=== PATIENT | female | born 1990 | race Caucasian/White ===

== ENCOUNTER 2019-04-09 15:14 | Day surgery (SDC) | payer OTHER, SELFPAY ==
[2019-04-09] MEDS ORDERED: hydrALAZINE 20 MG/ML VIAL SLOW IVP PRN (16:12)
--- NOTE | 2019-04-09 16:17 | PDOC.LDHP ---
Labor and Delivery H&P HPI: Patient of Dr Ochoa Triage 28 yo G1at 31.2 weeks here for decreased FM this weekend, mainly this PM. Called Gabriela who advised she come in, now movement better. No CTX, no LKOF, no VB. No issues Review of Systems: negative after complete list. Grav: 1 Current complications: none Abnormal US findings: No Past Medical History: None Current medications: pre- vitamins Previous surgical history: none Social history: none - Physical Exam Vital signs reviewed and normal: yes (131/68 96 Afebrile) General: NAD Heart: RRR Lungs: CTAB Abdomen: gravid Extremeties: no edema FHT: category 1 [place] contractions every: none - Assessment G1 at 33 weeks with decreased FM, NST reactive - Plan Plan: observation in L&D (NST ok...as double reassurrance, BPP ordered)
--- NOTE | 2019-04-09 16:32 | PDOC.EVN ---
Event Note - Event Note Event Note: I have seen and evaluated the patient at bedside...reactive NST reviewed to her.
[2019-04-09 16:56] VITALS: TEMP 98.8; BMI 34.7
--- NOTE | 2019-04-09 17:49 | PDOC.EVN ---
Event Note - Event Note Event Note: Baby moving now...NST remains reactive. BPP has been delayed due to [email or web address] tech called for urgent cases. I will cancel BPP as NST screen is reactive.
== END 2019-04-09 17:40 | disposition home or self-care (01) ==
LOC: L&D/OP 15:14
PROVIDERS: ATTEND Obstetrics & Gynecology
DX: O36.8130 Decreased fetal movements, third trimester, not applicable or unspecified (principal); Z3A.31 31 weeks gestation of pregnancy
CPT/HCPCS: 99282

== ENCOUNTER 2019-06-04 10:43 | Inpatient (IN) | payer OTHER, SELFPAY ==
[2019-06-04] MEDS ORDERED: NS w/ Oxytocin 10 units 500 ML IV SCH (20:10)
[2019-06-04] MEDS ORDERED: Lidocaine 1% (PF) 30 ML VIAL SC PRN (20:10)
[2019-06-04] MEDS ORDERED: Zolpidem Tartrate 5 MG TAB PO PRN (20:10)
[2019-06-04] MEDS ORDERED: Ondansetron PF 4 MG/2 ML Vial IVP PRN (20:10)
[2019-06-04] MEDS ORDERED: Ibuprofen 800 MG TAB PO PRN (20:10)
[2019-06-04] MEDS ORDERED: Diphenoxylate HCl/Atropine Tablet PO PRN ×2 (20:10)
[2019-06-04] MEDS ORDERED: Acetaminophen 500 MG TAB PO PRN (20:10)
[2019-06-04] MEDS ORDERED: hydrALAZINE 20 MG/ML VIAL SLOW IVP PRN (20:10)
[2019-06-04] MEDS ORDERED: Misoprostol 200 MCG TAB PR PRN (20:10)
[2019-06-04] MEDS ORDERED: NS / Oxytocin 40 units/1000ml 1,000 ML IV PRN (20:10)
[2019-06-04] MEDS ORDERED: Docusate 100 MG CAP PO PRN (20:10)
[2019-06-04] MEDS ORDERED: Promethazine HCl 25 MG/ML VIAL IM PRN (20:10)
[2019-06-04] MEDS ORDERED: HYDROcodone/Acetaminophen 5/325 mg Tablet PO PRN ×2 (20:10)
[2019-06-04] MEDS ORDERED: Penicillin G Potassium 5 MILL.UNITS in Sodium Chloride 0.9% 100 ML IVPB SCH (20:15)
[2019-06-04] MEDS: Lactated Ringer's 1,000 ML IV SCH ×2 (20:30→20:35)
[2019-06-04 20:43] LABS: Hemoglobin 10.8 g/dL (12.0-16.0); Mean Corpuscular HGB CONC 34.7 g/dL (32.0-36.0); Mean Corpuscular Hemoglobin 30.5 pg (27.0-31.0); Mean Corpuscular Volume 87.9 fL (78.0-98.0); Mean Platelet Volume 8.5 fL (7.4-10.4); Platelet Count 232 thou/uL (130-400); Red Blood Cell (RBC) Count 3.54 mill/uL (4.20-5.40); White Blood Cell (WBC) Count 14.2 thou/uL (4.8-10.8)
[2019-06-04 21:10] VITALS: BMI 36.0
[2019-06-04] MEDS: Misoprostol 100 MCG TAB VAG SCH (21:18)
[2019-06-04 21:52] LABS: Syphilis Antibody Nonreactive (Nonreactive)
[2019-06-05] MEDS: Lactated Ringer's 1,000 ML IV SCH ×2 (00:30→09:08)
[2019-06-05] MEDS: Misoprostol 100 MCG TAB VAG SCH ×2 (01:38→06:50)
[2019-06-05] MEDS: Penicillin G 2.5 MILL.units 2.5 MILL.UNITS in Premix Bag 1 BAG IVPB SCH ×6 (01:41→22:58)
[2019-06-05 01:51] LABS: HBSAg Index 0.15 S/CO (0-0.99); Hep B Surf Ag Non-Reactive S/CO (NonReactive)
[2019-06-05] MEDS: NS w/ Oxytocin 10 units 500 ML IV SCH (06:49)
[2019-06-05] MEDS: Butorphanol Tartrate 1 MG/ML VIAL SLOW IVP PRN ×2 (09:54→12:43)
[2019-06-05] MEDS ORDERED: Fentanyl 4 mcg/Bup 0.1% Cadd 100 ML ONE (13:54)
[2019-06-05] MEDS ORDERED: Lactated Ringer's 500 ML IV PRN (14:30)
[2019-06-05] MEDS ORDERED: Promethazine HCl 25 MG/ML VIAL IM PRN (14:30)
[2019-06-05] MEDS ORDERED: Communication Order-Pharmacy FS SCH (14:30)
[2019-06-05] MEDS ORDERED: ePHEDrine/0.9% NaCl/PF SYRINGE 50 mg/10 ml SLOW IVP PRN (14:30)
[2019-06-05] MEDS ORDERED: Ondansetron PF 4 MG/2 ML Vial IVP PRN (14:30)
[2019-06-05] MEDS ORDERED: Acetaminophen 325 MG TAB PO PRN (14:30)
[2019-06-05] MEDS ORDERED: diphenhydrAMINE 50 MG/ML VIAL IVP PRN (14:30)
[2019-06-05] MEDS ORDERED: Naloxone HCl 0.4 mg/ml Vial IVP PRN ×2 (14:30)
[2019-06-05] MEDS: Fentanyl 4 mcg/Bupivacaine 0.1% Cassette 100 ML EPIDURAL SCH (22:59)
[2019-06-06] MEDS: Penicillin G 2.5 MILL.units 2.5 MILL.UNITS in Premix Bag 1 BAG IVPB SCH ×2 (02:43→13:22)
[2019-06-06] MEDS: Fentanyl 4 mcg/Bupivacaine 0.1% Cassette 100 ML EPIDURAL SCH (05:09)
[2019-06-06] MEDS: Lactated Ringer's 1,000 ML IV SCH ×3 (05:09→14:52)
[2019-06-06] MEDS ORDERED: Ampicillin 2 GM in Sodium Chloride 0.9% 100 ML IVPB SCH (05:30)
[2019-06-06] MEDS ORDERED: Azithromycin 500 MG VIAL ONE (05:42)
[2019-06-06] MEDS ORDERED: Bicitra 30 ML UDCUP ONE (05:42)
[2019-06-06] MEDS ORDERED: Phytonadione 10 MG/ML AMP SLOW IVP SCH (05:45)
[2019-06-06] MEDS ORDERED: Dexamethasone 4 mg/ml Vial ONE (06:13)
[2019-06-06] MEDS ORDERED: MORPHINE 5 MG/10 ML PF VIAL ONE (06:13)
[2019-06-06] MEDS ORDERED: Ondansetron PF 4 MG/2 ML Vial ONE (06:13)
[2019-06-06] MEDS ORDERED: ePHEDrine/0.9% NaCl/PF SYRINGE 50 mg/10 ml ONE (06:13)
[2019-06-06] MEDS ORDERED: Oxytocin 10 UNITS/ML VIAL ONE (06:13)
[2019-06-06] MEDS ORDERED: Promethazine HCl 25 MG SUPP PR PRN (06:30)
[2019-06-06] MEDS ORDERED: Naloxone HCl 0.4 mg/ml Vial IVP PRN ×2 (06:30)
[2019-06-06] MEDS ORDERED: Communication Order-Pharmacy FS SCH (06:30)
[2019-06-06] MEDS ORDERED: HYDROmorphone 2 MG/ML VIAL SLOW IVP PRN (06:30)
[2019-06-06] MEDS ORDERED: Ketorolac Tromethamine 30 MG/ML VIAL IVP SCH (06:30)
[2019-06-06] MEDS ORDERED: Ondansetron HCl/PF 4 MG/2 ML Vial IVP PRN (06:30)
[2019-06-06] MEDS ORDERED: Promethazine HCl 25 MG/ML VIAL IM PRN (06:30)
[2019-06-06] MEDS ORDERED: diphenhydrAMINE 50 MG/ML VIAL IVP PRN (06:30)
[2019-06-06] MEDS ORDERED: Ondansetron PF 4 MG/2 ML Vial IVP PRN ×2 (06:30→07:45)
[2019-06-06] MEDS ORDERED: Naloxone HCl 0.4 mg/ml Vial IV PRN (06:30)
[2019-06-06] MEDS ORDERED: Ketorolac Tromethamine 30 MG/ML VIAL IVP PRN (06:30)
[2019-06-06] MEDS ORDERED: L&D-Morphine 4 MG/ML VIAL SLOW IVP PRN (06:30)
[2019-06-06] MEDS ORDERED: Meperidine HCl/PF 25 MG/ML VIAL SLOW IVP PRN (06:30)
[2019-06-06] MEDS ORDERED: Ketorolac Tromethamine 30 MG/ML VIAL ONE (06:52)
[2019-06-06] MEDS ORDERED: Zolpidem Tartrate 5 MG TAB PO PRN (07:45)
[2019-06-06] MEDS ORDERED: Simethicone Chewable 80 MG TAB PO PRN (07:45)
[2019-06-06] MEDS ORDERED: Lanolin Ointment 7 GM TUBE TOP PRN (07:45)
[2019-06-06] MEDS ORDERED: Acetaminophen 325 MG TAB PO PRN (07:45)
[2019-06-06] MEDS ORDERED: Adacel (T-DAP) 0.5 ML SYRINGE IM ONE (07:45)
[2019-06-06] MEDS ORDERED: diphenhydrAMINE 25 MG CAP PO PRN (07:45)
[2019-06-06] MEDS ORDERED: hydrALAZINE 20 MG/ML VIAL SLOW IVP PRN (07:45)
[2019-06-06] MEDS ORDERED: NS / Oxytocin 40 units/1000ml 1,000 ML IV SCH (07:45)
[2019-06-06] MEDS ORDERED: Meperidine HCl/PF 25 MG/ML VIAL IM PRN (07:45)
[2019-06-06] MEDS ORDERED: Bisacodyl 10 MG SUPP PR PRN (07:45)
[2019-06-06] MEDS ORDERED: Meperidine HCl/PF 25 MG/ML VIAL ONE (09:30)
--- NOTE | 2019-06-06 12:16 | OP ---
DATE OF PROCEDURE: 06/06/2019 RESIDENT SURGEON: Jennifer Kumar. PREOPERATIVE DIAGNOSES: 1. Term intrauterine at 39 and 3/7th weeks. 2. Failed induction. 3. Failure to progress. 4. Arrest of descent and dilatation. POSTOPERATIVE DIAGNOSES: 1. Term intrauterine at 39 and 3/7th weeks. 2. Failed induction. 3. Failure to progress. 4. Arrest of descent and dilatation. 5. Cephalopelvic disproportion. PROCEDURES PERFORMED: 1. Primary low-transverse section (LTCS). 2. Myomectomy. ANESTHESIA: Epidural catheterization. FINDINGS: 1. Transverse arrest of descent at -1 station. 2. Vigorous female , 6 pounds 4 ounces. Apgars 8 and 9. 3. Non-reassuring heart rate tracing (category II strip). 4. A 3-cm uterine fibroid at fundus of the uterus on the anterior surface. 5. Normal fallopian tubes and ovaries. 6. Cephalopelvic disproportion - narrow outlet, deep subpubic arch, prominent sacrum, android pelvis. COMPLICATIONS: None. SPECIMENS REMOVED: 1. Cord blood. 2. Uterine leiomyoma. ESTIMATED BLOOD LOSS: Less than 500 mL (QBL equal 490 mL). DESCRIPTION OF PROCEDURE: After thorough consent and counseling, Mrs. Huizar was taken the operating room, and an adequate level of anesthesia was obtained by existing epidural catheterization. The patient was prepped and draped in usual sterile fashion for abdominal surgery. A Mckenzie had previously been placed in the bladder, which was noted to be draining clear urine. A team time-out was performed per protocol. Attention was then turned to performing the surgical procedure. A Pfannenstiel incision was made and carried sharply to the fascia, which was also sharply incised. The midline was identified and the rectus muscles were retracted laterally. The abdominal peritoneal cavity was entered with usual safeguards carried out. A retractor was placed and a bladder flap was created on the vesicouterine peritoneum. A bladder blade was then placed. A low-transverse incision was made on the well-developed lower uterine segment. Upon entering the amniotic sac, a small amount of clear amniotic fluid was visualized. The was noted to be vertex presentation, still high in the pelvis. Head was delivered and baby was bulb suctioned on the abdomen. Shoulders and body were then delivered in an atraumatic fashion. The cord was doubly clamped and cut and the infant was handed to the pediatric team in attendance for the delivery. The was a vigorous viable female weighing 6 pounds 4 ounces with Apgars of 8 and 9 obtained at one and five minutes respectively. Cord blood was obtained. The placenta was manually removed from the uterus. The uterus was exteriorized and good tone was noted. The uterine cavity was then cleared of any remaining clot and fluid. The low-transverse incision was closed with a running locking ligature of #1 chromic. Multiple [id number] ligatures of #1 chromic were placed to facilitate strength and hemostasis. The vesicouterine peritoneum was then reapproximated to the lower segment with a running ligature of 3-0 Monocryl. The posterior cul-de-sac and gutters were cleared of clot and fluid. The uterus, fallopian tubes, and ovaries were inspected. There was a 3-cm anterior uterine fibroid noted. This was a subserosal fibroid. The fibroid was carefully isolated and myomectomy was performed. Once removed, the leiomyoma was sent to pathology for confirmation. The serosal surface, where the fibroid was removed, was closed with a running ligature of 2-0 Vicryl. Good hemostasis was noted. Seprafilm was then applied to the low-transverse incision and to the anterior aspect of the uterus for adhesion prevention. All surgical sites were examined and noted to be hemostatic. The pelvis was carefully inspected secondary to transverse arrest of descent and dilatation. There was an extremely prominent sacrum with a narrow anterior-posterior diameter. The outlet was noted to be narrow and there was a deep subpubic arch. The patient was given a diagnosis of cephalopelvic disproportion (CPD). The uterus was returned to the abdomen. All surgical sites were once again inspected and noted to be normal and hemostatic. Lap, sponge, and needle counts were correct. The peritoneum was closed with a running ligature of 2-0 Vicryl suture. The rectus muscles were reapproximated in the midline. The fascia was then closed with 2 ligatures of 0 Vicryl suture, which were tied in the midline. Good fascial integrity was appreciated. The incision was irrigated with copious amount of warm normal saline. The subcutaneous tissue was closed with interrupted ligatures of 2-0 plain. The skin was closed with subcuticular stitch of 4-0 Monocryl and dressed with Dermabond. Lap, sponge, and needle counts were correct x3. The estimated blood loss during the surgical procedure was less than 500 mL (QBL equal 490 mL). The patient was taken to the recovery room in good condition. Immediately following surgery, the patient and family were made aware of the surgical procedure and operative findings. Questions were answered to their satisfaction. We discussed in detail the findings of transverse arrest of descent and the diagnosis of CPD. We also discussed the implications for future pregnancies. The patient and her were very appreciative of the care rendered here at [facility] this morning. Mother and baby were doing well above postoperatively. The baby was returned to mom's shortly after delivery for [id number] contact and . Job ID: [id number]
[2019-06-06] MEDS: Docusate Calcium (SURFAK) 240 MG CAP PO SCH ×2 (13:19→22:17)
[2019-06-06] MEDS: Prenatal Vitamin 1 TAB PO SCH (13:20)
[2019-06-06] MEDS: Ferrous Sulfate 325 MG TAB PO SCH ×2 (13:20→22:17)
[2019-06-06] MEDS: Misoprostol 100 MCG TAB VAG SCH ×2 (13:21→13:22)
[2019-06-06] MEDS: NS w/ Oxytocin 10 units 500 ML IV SCH (13:22)
[2019-06-06] MEDS: Ibuprofen 800 MG TAB PO SCH ×2 (14:52→22:17)
[2019-06-07] MEDS: HYDROcodone/Acetaminophen 5/325 mg Tablet PO PRN ×4 (00:17→19:00)
[2019-06-07] MEDS: Lactated Ringer's 1,000 ML IV SCH ×3 (01:48→14:03)
[2019-06-07 05:00] LABS: Hemoglobin 8.9 g/dL (12.0-16.0); Mean Corpuscular HGB CONC 33.7 g/dL (32.0-36.0); Mean Corpuscular Hemoglobin 30.3 pg (27.0-31.0); Mean Corpuscular Volume 89.8 fL (78.0-98.0); Mean Platelet Volume 8.5 fL (7.4-10.4); Platelet Count 196 thou/uL (130-400); Red Blood Cell (RBC) Count 2.93 mill/uL (4.20-5.40); White Blood Cell (WBC) Count 20.3 thou/uL (4.8-10.8)
[2019-06-07] MEDS: Ibuprofen 800 MG TAB PO SCH ×3 (05:36→21:42)
[2019-06-07] MEDS: Prenatal Vitamin 1 TAB PO SCH (09:50)
[2019-06-07] MEDS: Ferrous Sulfate 325 MG TAB PO SCH ×2 (09:50→21:42)
[2019-06-07] MEDS: Docusate Calcium (SURFAK) 240 MG CAP PO SCH ×2 (09:50→21:42)
[2019-06-08] MEDS: Lactated Ringer's 1,000 ML IV SCH ×2 (00:31→08:07)
[2019-06-08] MEDS: HYDROcodone/Acetaminophen 5/325 mg Tablet PO PRN ×3 (00:32→10:54)
[2019-06-08] MEDS: Ibuprofen 800 MG TAB PO SCH (05:28)
[2019-06-08] MEDS: Ferrous Sulfate 325 MG TAB PO SCH (08:06)
[2019-06-08] MEDS: Prenatal Vitamin 1 TAB PO SCH (08:06)
[2019-06-08] MEDS: Docusate Calcium (SURFAK) 240 MG CAP PO SCH (08:06)
[2019-06-08 08:07] VITALS: BP 122/69; TEMP 98
== END 2019-06-08 11:45 | disposition home or self-care (01) | DRG 788 ==
LOC: L&D 19:43 → 3SW 06-06 10:29 → EDSTATUS 06-10 10:42
PROVIDERS: ADMIT Obstetrics & Gynecology; ATTEND Obstetrics & Gynecology
PROC: 10D00Z1 Extraction of Products of Conception, Low, Open Approach (ICD-10-PCS; principal; 2019-06-06)
PROC: 0UB90ZZ Excision of Uterus, Open Approach (ICD-10-PCS; 2019-06-06)
PROC: 3E0P7VZ Introduction of Hormone into Female Reproductive, Via Natural or Artificial Opening (ICD-10-PCS; 2019-06-06)
PROC: 3E033VJ Introduction of Other Hormone into Peripheral Vein, Percutaneous Approach (ICD-10-PCS; 2019-06-06)
PROC: 10907ZC Drainage of Amniotic Fluid, Therapeutic from Products of Conception, Via Natural or Artificial Opening (ICD-10-PCS; 2019-06-06)
DX: O99.824 Streptococcus B carrier state complicating childbirth (principal); O70.0 First degree perineal laceration during delivery; O61.0 Failed medical induction of labor; O62.0 Primary inadequate contractions; O34.13 Maternal care for benign tumor of corpus uteri, third trimester; D25.9 Leiomyoma of uterus, unspecified; O76 Abnormality in fetal heart rate and rhythm complicating labor and delivery; O32.4XX0 Maternal care for high head at term, not applicable or unspecified; O33.9 Maternal care for disproportion, unspecified; Z3A.39 39 weeks gestation of pregnancy; Z37.0 Single live birth
CPT/HCPCS: 36415; 51702; 85027; 85461; 86780; 86850; 86870; 86900; 86901; 87340; 88305; 90384; 96372; J0131; J0456; J0595; J0690; J1100; J1885; J2175; J2274; J2405; J2540; J2590; J3490